=== PATIENT | female | born 1985 | race Caucasian/White ===

== ENCOUNTER 2018-10-24 19:56 | Emergency (ER) | payer MEDICAID ==
[~2018-10-24] VITALS: Ht 167.6 cm; Wt 64.9 kg
--- NOTE | 2018-10-24 20:15 | NUR ---
PT BIBSELF C/O MIDLOWER PELVIC PAIN X COUPLE WKS, DISCOMFORT, NO HEMATURIA, NO VB NOTICE OCCASIONAL THICK VAGINAL DISCHARGE W/ NO FOUL ODORS. PT AOX3 RR EVEN AND UNLABORED. NO SOB NOTED. NAD NOTED. NO NVD AT THIS TIME. PT GOWNED AND PLACED ON MONITOR WAITING FOR MD NORMAN.
[2018-10-24 20:58] LABS: APPEARANCE,URINE Clear (CLEAR); BILIRUBIN,URINE Negative (NEGATIVE); BLOOD, URINE Negative Ery/uL (NEGATIVE); COLOR,URINE Yellow (YELLOW); KETONES,URINE Negative (NEGATIVE); LEUKOCYTE ESTERASE ,URINE Negative (NEGATIVE); NITRITE, URINE Negative (NEGATIVE); PROTEIN,URINE Negative (NEGATIVE); UGLUCOSE Negative (NEGATIVE); UROBILINOGEN,URINE 0.2 EU/dL (0.2)
[2018-10-24 21:08] VITALS: BP 125/80
== END 2018-10-24 21:22 | disposition home or self-care (01) ==
LOC: ER 19:56
DX: B37.3 Candidiasis of vulva and vagina (principal); K21.9 Gastro-esophageal reflux disease without esophagitis; Z86.711 Personal history of pulmonary embolism; Z87.440 Personal history of urinary (tract) infections; Z60.2 Problems related to living alone
CPT/HCPCS: 81001; 84703; 99283; A4606; Z7610; 81000-TC

== ENCOUNTER 2023-03-08 12:38 | Emergency (ER) | payer MEDICAID ==
[~2023-03-08] VITALS: Ht 165.1 cm; Wt 72.6 kg
[2023-03-08] MEDS ORDERED: ONDANSETRON HCL/PF 4 MG/2 ML VIAL ONE ×2 (12:42→15:10)
--- NOTE | 2023-03-08 12:42 | NUR ---
BIB [facility] FROM [facility] C/O ABDOMINAL PAIN 10/10 ON PAIN SCALE. PT STATED SHE WAS FEELING ANXIOUS AND NAUSEOUS SINCE YESTERDAT AND THIS MORNING STARTED TO THROW UP, AND HAS DIARRHEA. PT NOT ABLE TO TOLERATED FLUID. TOOK ZOFRAN AT HOME AND THREW IT UP. AWAITING MD NORMAN.
--- NOTE | 2023-03-08 12:56 | NUR ---
IV ESTABLISHED R 20G. LABS COLLECTED AND SENT.
[2023-03-08] MEDS ORDERED: ONDANSETRON HCL/PF 4 MG/2 ML VIAL IV ONE (13:00)
[2023-03-08 13:23] LABS: BASOPHILS % (AUTO) 0.1 % (0.0-2.0); EOSINOPHILS % (AUTO) 0.1 % (0.0-6.0); HEMATOCRIT 44 % (33-45); HEMOGLOBIN 14.4 g/dL (11.5-14.8); LYMPHOCYTES # (AUTO) 0.6 K/uL (0.8-4.8); LYMPHOCYTES % (AUTO) 4.3 % (20.0-44.0); MEAN CORPUSCULAR HGB CONC 33 g/dl (31.0-36.0); MEAN CORPUSCULAR VOLUME 88 fL (82-100); MONOCYTES # (AUTO) 0.5 K/uL (0.1-1.30); MONOCYTES % (AUTO) 3.6 % (2.0-12.0); NEUTROPHILS # (AUTO) 12.1 K/uL (1.8-8.9); NEUTROPHILS % (AUTO) 91.9 % (43.0-81.0); PLATELET COUNT (AUTO) 326 K/uL (150-450); RED BLOOD CELL COUNT(AUTO) 5.01 MIL/uL (4.0-5.2); WHITE BLOOD COUNT (AUTO) 13.1 K/uL (4.3-11.0)
--- NOTE | 2023-03-08 13:35 | NUR ---
URINE COLLECTED AND SENT
[2023-03-08 13:40] LABS: POTASSIUM 3.4 mmol/L (3.5-5.1)
[2023-03-08 13:41] LABS: ALBUMIN 4.4 g/dL (3.4-5.0); BILIRUBIN,DIRECT 0.2 mg/dL (0.0-0.2); CALCIUM, SERUM 9.4 mg/dL (8.5-10.1); CREATININE 0.9 mg/dL (0.6-1.3); TOTAL PROTEIN, SERUM 7.9 g/dL (6.4-8.2)
[2023-03-08] MEDS ORDERED: ONDANSETRON HCL/PF 4 MG/2 ML VIAL IVP ONE (14:00)
[2023-03-08] MEDS ORDERED: FAMOTIDINE/PF INJ 20 MG/2 ML VIAL IV ONE ×2 (14:00→15:11)
[2023-03-08] MEDS ORDERED: IV NS 0.9% 1,000 ML BAG IV ONE (14:00)
[2023-03-08] MEDS ORDERED: ALPRAZOLAM 0.5 MG TABLET PO ONE (14:00)
[2023-03-08 14:15] LABS: COLOR,URINE YELLOW (YELLOW); PH,URINE 5.5 (5.0-8.0)
[2023-03-08 14:16] LABS: BILIRUBIN,URINE SMALL (NEGATIVE); LEUKOCYTE ESTERASE ,URINE NEGATIVE (NEGATIVE); NITRITE, URINE NEGATIVE (NEGATIVE); PROTEIN,URINE 100 mg/dl (NEGATIVE); UGLUCOSE NEGATIVE (NEGATIVE); UROBILINOGEN,URINE 0.2 EU/dL (0.2)
[2023-03-08 14:49] LABS: BACTERIA,URINE Many /HPF (None Seen); SQUAMOUS EPITHELIAL CELL,UR Many /HPF (None Seen); WBC,URINE 0-2 /HPF (0-3)
[2023-03-08] MEDS ORDERED: ONDA4TAB5 PO ×2 (15:09→15:50)
[2023-03-08] MEDS ORDERED: ALPRAZOLAM 0.5 MG TABLET ONE (15:10)
--- NOTE | 2023-03-08 15:30 | NUR ---
IV removed. Catheter intact and site benign. Pressure and 4x4 applied to site. No bleeding noted.Patient discharged to home in stable condition. Written and verbal after care instructions given. Patient verbalizes understanding of instruction.
[2023-03-08 16:01] VITALS: BP 125/77
== END 2023-03-08 16:01 | disposition home or self-care (01) ==
LOC: ER 12:39
DX: R19.7 Diarrhea, unspecified (principal); R11.2 Nausea with vomiting, unspecified; F41.0 Panic disorder [episodic paroxysmal anxiety]; K21.9 Gastro-esophageal reflux disease without esophagitis; Z60.2 Problems related to living alone
CPT/HCPCS: 99285; 96374; 76705; 96375; 96376; 85025; 80048; 87086; 83690; 80076; 84703; 81001; 36415; J3490; J2405 ×2

== ENCOUNTER 2023-03-10 18:45 | Emergency (ER) | payer MEDICAID ==
[~2023-03-10] VITALS: Ht 167.6 cm; Wt 81.6 kg
[~2023-03-10 18:45] MED LIST: ONDA4TAB5 PO
--- NOTE | 2023-03-10 21:10 | NUR ---
BIBSELF FROM [facility]RG[facility] C/O N/V, ABD PAIN X3 DAYS. PATIENT WAS SEEN ON TUESDAY AND DX WITH "STOMACH VIRUS" BUT IS CONCERNED DUE TO BEING UNABLE TO TOLERATE PO WITH PRESCRIBED ZOFRAN. DENIES ANY PAIN RR EVEN AND UNLABORED. V/S WNL.
--- NOTE | 2023-03-10 21:14 | NUR ---
US TECH AT PT'S BEDSIDE
--- NOTE | 2023-03-10 21:14 | NUR ---
URINE COLLECTED AND SENT TO LAB
[2023-03-10] MEDS ORDERED: ONDANSETRON HCL/PF 4 MG/2 ML VIAL ONE (21:21)
[2023-03-10] MEDS ORDERED: ONDANSETRON HCL/PF 4 MG/2 ML VIAL IVP ONE (21:30)
[2023-03-10] MEDS ORDERED: IV NS 0.9% 1,000 ML BAG IV ONE (21:30)
--- NOTE | 2023-03-10 21:30 | NUR ---
20G IV STARTED AT [facility]. BLOOD SENT TO LAB
[2023-03-10 21:36] LABS: BILIRUBIN,URINE 2+ (NEGATIVE); COLOR,URINE YELLOW (YELLOW); LEUKOCYTE ESTERASE ,URINE NEGATIVE (NEGATIVE); NITRITE, URINE NEGATIVE (NEGATIVE); PROTEIN,URINE TRACE mg/dl (NEGATIVE); UGLUCOSE NEGATIVE (NEGATIVE); UROBILINOGEN,URINE 0.2 EU/dL (0.2)
[2023-03-10 21:55] LABS: BACTERIA,URINE 1+ /HPF (None Seen); RBC,URINE 0-2 /HPF (0-2); SQUAMOUS EPITHELIAL CELL,UR Moderate /HPF (None Seen); WBC,URINE 0-2 /HPF (0-3)
[2023-03-10 21:57] LABS: BASOPHILS % (AUTO) 0.4 % (0.0-2.0); EOSINOPHILS % (AUTO) 1.1 % (0.0-6.0); HEMATOCRIT 44 % (33-45); HEMOGLOBIN 14.3 g/dL (11.5-14.8); LYMPHOCYTES # (AUTO) 0.9 K/uL (0.8-4.8); LYMPHOCYTES % (AUTO) 25.6 % (20.0-44.0); MEAN CORPUSCULAR HGB CONC 33 g/dl (31.0-36.0); MEAN CORPUSCULAR VOLUME 89 fL (82-100); MONOCYTES # (AUTO) 0.3 K/uL (0.1-1.30); MONOCYTES % (AUTO) 9.9 % (2.0-12.0); NEUTROPHILS # (AUTO) 2.2 K/uL (1.8-8.9); PLATELET COUNT (AUTO) 190 K/uL (150-450); RED BLOOD CELL COUNT(AUTO) 4.94 MIL/uL (4.0-5.2); WHITE BLOOD COUNT (AUTO) 3.4 K/uL (4.3-11.0)
[2023-03-10 22:15] LABS: ALBUMIN 3.4 g/dL (3.4-5.0); BILIRUBIN,DIRECT 0.1 mg/dL (0.0-0.2); BILIRUBIN,TOTAL 0.4 mg/dL (0.2-1.0); CALCIUM, SERUM 8.3 mg/dL (8.5-10.1); CREATININE 0.7 mg/dL (0.6-1.3); POTASSIUM 3.1 mmol/L (3.5-5.1); TOTAL PROTEIN, SERUM 6.6 g/dL (6.4-8.2)
[2023-03-10] MEDS ORDERED: FAMOTIDINE/PF INJ 20 MG/2 ML VIAL IV ONE ×2 (23:00→23:23)
[2023-03-10] MEDS ORDERED: ONDA4TAB5 PO (23:20)
--- NOTE | 2023-03-10 23:22 | NUR ---
PATIENT PASSED PO TRIAL WITH ONE CUP WATER WSITHOUT EMISIS
--- NOTE | 2023-03-10 23:37 | NUR ---
Patient discharged to home in stable condition. Written and verbal after care instructions given. Patient verbalizes understanding of instruction.IV removed. Catheter intact and site benign. Pressure and 4x4 applied to site. No bleeding noted.
[2023-03-10 23:46] VITALS: BP 127/72
== END 2023-03-10 23:46 | disposition home or self-care (01) ==
LOC: ER 18:56
DX: A08.4 Viral intestinal infection, unspecified (principal); R11.2 Nausea with vomiting, unspecified; K21.9 Gastro-esophageal reflux disease without esophagitis; F41.9 Anxiety disorder, unspecified; Z87.440 Personal history of urinary (tract) infections; Z88.8 Allergy status to other drugs, medicaments and biological substances; Z60.2 Problems related to living alone
CPT/HCPCS: 99285; 96374; 76700; 96361; 96375; 85025; 80048; 83690; 80076; 84703; 81001; 36415; J3490; J2405; J7030

== ENCOUNTER 2023-05-30 18:05 | Emergency (ER) | payer MEDICAID ==
[~2023-05-30] VITALS: Ht 167.6 cm; Wt 81.6 kg
--- NOTE | 2023-05-30 18:24 | NUR ---
TO ER BED 1. BIBS C/O HEADACHE AND BLURRY VISION AFTER WALKING OUTSIDE. VITALS ARE WITHIN NORMAL LIMITS.
[2023-05-30] MEDS ORDERED: diphenhydrAMINE HCL 25 MG CAPSULE ONE (18:41)
[2023-05-30] MEDS ORDERED: IBUPROFEN 600 MG TABLET ONE (18:41)
[2023-05-30] MEDS ORDERED: METOCLOPRAMIDE HCL 10 MG TABLET ONE (18:42)
[2023-05-30] MEDS ORDERED: IBUPROFEN 600 MG TABLET PO ONE (19:00)
[2023-05-30] MEDS ORDERED: METOCLOPRAMIDE HCL 10 MG TABLET PO ONE (19:00)
[2023-05-30] MEDS ORDERED: DIPHENHYDRAMINE HCL 12.5 MG/5 ML UDC PO ONE (19:00)
[2023-05-30 19:51] VITALS: BP 118/81; TEMP 98.2
--- NOTE | 2023-05-30 19:51 | NUR ---
Patient discharged to home in stable condition. Written and verbal after care instructions given. Patient verbalizes understanding of instruction.
== END 2023-05-30 19:51 | disposition home or self-care (01) ==
LOC: ER 18:15
DX: R51.9 Headache, unspecified (principal); I10 Essential (primary) hypertension; K21.9 Gastro-esophageal reflux disease without esophagitis; F41.9 Anxiety disorder, unspecified; Z60.2 Problems related to living alone; Z79.899 Other long term (current) drug therapy
CPT/HCPCS: 99283; Q0163 ×2; J8597

== ENCOUNTER → 2024-09-01 | Emergency (ER) | payer MEDICAID ==
[~2024-09-01] VITALS: Ht 167.6 cm; Wt 88.9 kg
[~2024-09-01] MED LIST changes: +CYCL5TAB PO; +CYCLOBENZAPRINE 10 MG TABLET ONE; +KETOROLAC TROMETHAMINE 15 MG/ML VIAL ONE; +LIDOCAINE 5% (PATCH) 1 EA PATCH TP ONE; +MAG HYDROX/AL HYDROX/SIMETH 30 ML UDC ONE; +NAPR-1009 PO; +NITR100C6 PO; +ONDA4TAB11 PO; +ONDANSETRON HCL/PF 4 MG/2 ML VIAL ONE
[2024-09-01 13:00] LABS: BASOPHILS % (AUTO) 0.3 % (0.0-2.0); EOSINOPHILS % (AUTO) 0.1 % (0.0-6.0); HEMATOCRIT 38 % (33-45); HEMOGLOBIN 12.8 g/dL (11.5-14.8); LYMPHOCYTES # (AUTO) 0.9 K/uL (0.8-4.8); LYMPHOCYTES % (AUTO) 12.9 % (20.0-44.0); MEAN CORPUSCULAR HEMOGLOBIN 30 PG (26.0-33.0); MEAN CORPUSCULAR HGB CONC 34 g/dl (31.0-36.0); MEAN CORPUSCULAR VOLUME 89 fL (82-100); MONOCYTES # (AUTO) 0.3 K/uL (0.1-1.30); MONOCYTES % (AUTO) 4.8 % (2.0-12.0); NEUTROPHILS # (AUTO) 5.4 K/uL (1.8-8.9); NEUTROPHILS % (AUTO) 81.9 % (43.0-81.0); PLATELET COUNT (AUTO) 285 K/uL (150-450); RED BLOOD CELL COUNT(AUTO) 4.29 MIL/uL (4.0-5.2); WHITE BLOOD COUNT (AUTO) 6.6 K/uL (4.3-11.0)
[2024-09-01] MEDS: LIDOCAINE 5% (PATCH) 1 EA PATCH TP SCH (13:00)
[2024-09-01 13:09] LABS: CALCIUM, SERUM 8.8 mg/dL (8.5-10.1); CREATININE 0.7 mg/dL (0.6-1.3)
[2024-09-01] MEDS: MAG HYDROX/AL HYDROX/SIMETH 30 ML UDC PO ONE (13:41)
[2024-09-01] MEDS: ONDANSETRON HCL/PF 4 MG/2 ML VIAL IVP ONE (13:41)
[2024-09-01] MEDS: IV NS 0.9% 1,000 ML BAG IV ONE (13:41)
[2024-09-01] MEDS: CYCLOBENZAPRINE 10 MG TABLET PO ONE (13:41)
[2024-09-01] MEDS: KETOROLAC TROMETHAMINE 15 MG/ML VIAL IV ONE (13:41)
[2024-09-01 15:16] LABS: APPEARANCE,URINE SLIGHTLY CLOUDY (CLEAR); BILIRUBIN,URINE NEGATIVE (NEGATIVE); BLOOD, URINE NEGATIVE Ery/uL (NEGATIVE); COLOR,URINE YELLOW (YELLOW); KETONES,URINE 2+ mg/dL (NEGATIVE); LEUKOCYTE ESTERASE ,URINE NEGATIVE (NEGATIVE); NITRITE, URINE NEGATIVE (NEGATIVE); PROTEIN,URINE NEGATIVE (NEGATIVE); UGLUCOSE NEGATIVE (NEGATIVE); UROBILINOGEN,URINE 0.2 EU/dL (0.2)
[2024-09-01 15:20] LABS: PREGNANCY TEST URINE QUAL NEGATIVE (NEGATIVE)
[2024-09-01 15:35] LABS: RBC,URINE 0-2 /HPF (0-2)
[2024-09-01 15:36] LABS: ADD URINE CULTURE NO; BACTERIA,URINE Rare /HPF (None Seen); TRICHOMONAS,URINE None Seen /HPF (None Seen); YEAST,URINE None Seen /HPF (None Seen)
[2024-09-01 16:36] VITALS: BP 115/70; TEMP 98.5; O2SAT 97
== END | disposition home or self-care (01) ==
LOC: ER 12:20
DX: M54.50 Low back pain, unspecified (principal); I10 Essential (primary) hypertension; R10.2 Pelvic and perineal pain; K21.9 Gastro-esophageal reflux disease without esophagitis; Z87.440 Personal history of urinary (tract) infections; Z60.2 Problems related to living alone; Z88.2 Allergy status to sulfonamides
CPT/HCPCS: 99284; 96374; 96361; 96375; 72170; 85025; 80048; 84703; 81001; 36415; J2405; J7030; J1885

== ENCOUNTER 2025-09-03 16:57 | Emergency (ER) | payer MEDICAID ==
[~2025-09-03] VITALS: Ht 167.6 cm; Wt 86.2 kg
[~2025-09-03 16:57] MED LIST changes: -CYCLOBENZAPRINE 10 MG TABLET ONE; -KETOROLAC TROMETHAMINE 15 MG/ML VIAL ONE; -LIDOCAINE 5% (PATCH) 1 EA PATCH TP ONE; -MAG HYDROX/AL HYDROX/SIMETH 30 ML UDC ONE; -ONDANSETRON HCL/PF 4 MG/2 ML VIAL ONE
[2025-09-03] MEDS ORDERED: TETRAcaine 5 ML BOTTLE ONE (18:01)
[2025-09-03] MEDS ORDERED: KETOROLAC TROMETHAMINE 15 MG/ML VIAL ONE (18:08)
[2025-09-03] MEDS ORDERED: METOCLOPRAMIDE HCL 10 MG TABLET ONE (18:09)
[2025-09-03] MEDS: TETRAcaine 5 ML BOTTLE EACHEYE ONE (18:10)
[2025-09-03] MEDS: METOCLOPRAMIDE HCL 10 MG TABLET PO ONE (18:15)
[2025-09-03] MEDS: KETOROLAC TROMETHAMINE 15 MG/ML VIAL IM ONE (18:15)
[2025-09-03] MEDS ORDERED: IBUP-1490 PO (19:06)
[2025-09-03] MEDS ORDERED: METO-295 PO (19:06)
[2025-09-03 19:26] VITALS: BP 132/70; TEMP 98.5; O2SAT 98
== END 2025-09-03 19:28 | disposition home or self-care (01) ==
LOC: ER 17:02
DX: R51.9 Headache, unspecified (principal); H57.12 Ocular pain, left eye; I10 Essential (primary) hypertension; E28.2 Polycystic ovarian syndrome; Z87.440 Personal history of urinary (tract) infections
CPT/HCPCS: 99283; 96372; J1885; J8597